=== PATIENT | male | born 1975 | race African-American/Black ===

== ENCOUNTER 2017-02-27 12:11 | Emergency (ER) | payer MEDICAID ==
[2017-02-27 12:15] VITALS: BP 126/81
[2017-02-27] MEDS ORDERED: Ibuprofen TAB* 600 MG PO ONE (15:34)
--- NOTE | 2017-02-27 15:42 | ED ---
Throat Pain/Nasal Congestion - HPI Summary HPI Summary: 41 male presents to ED with complaints of sore throat and right ear pain that has been ongoing for the past 2 days. Patient admits to sick contacts with colds. Patient thinks he has strep. States it hurts to swallow and has been having trouble eating because of it. Denies any other complaints. No fever/ chills. No headache, nausea, vomiting or coughing. Denies swelling. No PMHx. No medications. Has not taken any medication for the pain or symptoms. - History of Current Complaint Chief Complaint: EDEarPain Time Seen by Provider: 02/27/17 14:30 Hx Obtained From: Patient Onset/Duration: Sudden Onset, Lasting Days, Still Present Severity: Moderate Associated Signs And Symptoms: Positive: Dysphagia Cough: None - Allergies/Home Medications Allergies/Adverse Reactions: Allergies Allergy/AdvReac Type Severity Reaction Status Date / Time No Known Allergies Allergy Verified 02/27/17 12:16 PMH/Surg Hx/FS Hx/Imm Hx Endocrine/Hematology History: Denies: Hx Diabetes Cardiovascular History: Reports: Other Cardiovascular Problems/Disorders - open heart age 5 Denies: Hx Congestive Heart Failure, Hx Hypertension - Surgical History Surgery Procedure, Year, and Place: open heart age 5 - Immunization History Immunizations Up to Date: Yes Infectious Disease History: No Infectious Disease History: Denies: Traveled Outside the [place] in Last 30 Days - Family History Known Family History: Positive: None - Social History Alcohol Use: Weekly Alcohol Amount: last drank 5-6 days ago Substance Use Type: Reports: None Smoking Status (MU): Heavy Every Day Tobacco Smoker Review of Systems Constitutional: Negative Positive: Sore Throat, Ear Ache, Nasal Discharge Cardiovascular: Negative Respiratory: Negative Neurological: Negative All Other Systems Reviewed And Are Negative: Yes Physical Exam Triage Information Reviewed: Yes Vital Signs On Initial Exam: Initial Vitals Temp Pulse Resp BP Pulse Ox 97.6 F 77 18 126/81 97 02/27/17 12:12 02/27/17 12:12 02/27/17 12:12 02/27/17 12:12 02/27/17 12:12 Vital Signs Reviewed: Yes Appearance: Positive: Well-Appearing, No Pain Distress, Well-Nourished Skin: Positive: Warm, Skin Color Reflects Adequate Perfusion, Dry. Negative: Cold, Numb Head/Face: Positive: Normal Head/Face Inspection Eyes: Positive: EOMI, DINAH, Conjunctiva Clear ENT: Positive: Normal ENT inspection, Hearing grossly normal, Pharynx normal, TMs normal - some serous effusion behind bilateral tm, minimal, Uvula midline - airway patent. Negative: TM bulging, TM dull, Tonsillar swelling, Tonsillar exudate, Trismus Dental: Negative: Cervical Lymphadenopathy Neck: Positive: Supple, Nontender, No Lymphadenopathy Respiratory/Lung Sounds: Positive: Clear to Auscultation, Breath Sounds Present. Negative: Rales, Rhonchi, Wheezes Cardiovascular: Positive: Normal, RRR, Pulses are Symmetrical in both Upper and Lower Extremities. Negative: Murmur, Rub Musculoskeletal: Positive: Normal, Strength/ROM Intact Neurological: Positive: Normal, Sensory/Motor Intact, Alert, Oriented to Person Place, Time - Millicent Coma Scale Coma Scale Total: 15 Diagnostics - Vital Signs Vital Signs Temp Pulse Resp BP Pulse Ox 02/27/17 12:12 97.6 F 77 18 126/81 97 - Laboratory Lab Results: Lab Results 02/27/17 Range/Units 15:06 Group A Strep Rapid Negative (Negative) Lab Statement: Any lab studies that have been ordered have been reviewed, and results considered in the medical decision making process. EENT Course/Dx - Course Course Of Treatment: normal vitals. strep culture obtained and negative. normal PE. appears to be suffering from a viral pharyngitis. given magic mouth wash, ibuprofen and zyrtec while in ED. Will send to pharmacy to continue. Also suggested chloraseptic spray/lozenges and salt water gargles. increase fluid intake. aware of worsening signs and symptoms to watch out for and return if occur. Follow up with pcp. - Differential Diagnoses Differential Diagnoses: Otitis Externa, Otitis Media, Pharyngitis, URI/ Bronchitis - Diagnoses Provider Diagnoses: Pharyngitis Discharge - Discharge Plan Condition: Stable Disposition: HOME Patient Education Materials: Pharyngitis (ED), Viral Syndrome (ED) Referrals: [facility] [place] [facility] [Outside] Additional Instructions: Take prescribed medication as directed to help with symptoms. Increase fluids and rest. Chloraseptic spray sold over the counter. Salt water gargles. Any new or worsening symptoms please seek medical attention. Follow up with PCP to ensure improvement.
[2017-02-27] MEDS ORDERED: Magic Mouth Was-BEN/MAAL/LIDO SWISH SWAL SCH (17:00)
[2017-02-28] MEDS ORDERED: Cetirizine* 10 MG TAB PO ONE (15:34)
== END 2017-02-27 16:14 | disposition home or self-care (01) ==
LOC: ED 12:11
DX: J02.9 Acute pharyngitis, unspecified (principal); F17.200 Nicotine dependence, unspecified, uncomplicated
CPT/HCPCS: 87651; 99282; A9270-GY